=== PATIENT | female | born 2000 | race Caucasian/White ===

== ENCOUNTER 2021-06-10 12:57 | Inpatient (IN) ==
--- NOTE | 2021-06-10 13:23 | Emergency Department Note ---
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 Initially began this morning and woke her up from sleep and was more diffusely upper pain, and has quickly migrated to the right lower area. Accompanied by anorexia today. She tried taking Gas-X and Pepcid Complete without much relief in symptoms. Had a normal bowel movement today. Patient was diagnosed with mononucleosis 7 weeks ago at [facility]. She has had repeat blood work showing low platelets and was scheduled for repeat blood work this coming week. She has had persistent fatigue from mono and has been taking it easy, not exercising. Denies any recent trauma to the abdomen. No recent alcohol use. She denies any significant GI history, has never seen a beef splitter. Denies any history of abdominal or pelvic surgeries. Family history is positive for uterine and ovarian cysts. Her mother required hysterectomy secondary to multiple cysts. Patient has never been diagnosed with an ovarian cyst but she feels like she may have had them in the past, but the pain often improves. Last menstrual period was 2 weeks ago and was normal. She is sexually active, but uses condoms and takes control regularly. She denies any concern for sexually transmitted infection. Denies any abnormal vaginal bleeding or discharge recently. Does endorse that sex has been more painful over the past week. Denies any fevers, chills, chest pain, shortness of breath, cough, nausea or vomiting, blood in her stool, dark tarry stool, hematuria, dysuria, lightheadedness, weakness, skin rash. Home Medications Medication Instructions Recorded Confirmed Type drospirenone 3 mg-ethinyl 3 tab PO QAM 06/10/21 06/10/21 History estradiol 0.02 mg tablet (Vestura (28)) sertraline 25 mg tablet 25 mg PO QAM 06/10/21 06/10/21 History sertraline 50 mg tablet 50 mg PO QAM 06/10/21 06/10/21 History Allergies Allergy/AdvReac Type Severity Reaction Status Date / Time No Known Allergies Allergy Unverified 06/10/21 14:11 Past Med/Surg History Medical History Anxiety Mononucleosis Family History (Updated 06/10/21 @ 22:03 by PATRICIA Gillis) Other Ovarian cyst Polycystic kidney disease Social History Smoking Status: Never smoker Preferred Language: Yoruba Feels Safe at Home: Yes Review of Systems See HPI for pertinent positives & negatives. and A total of 10 systems reviewed and were otherwise negative Physical Exam Vital Signs Vital Signs - 24 hr 06/10/21 13:02 06/10/21 14:07 06/10/21 16:00 Temperature 99.0 F Temperature Source Temporal Artery Scan Pulse Rate 124 H Pulse Rate [Apical] Pulse Rate [Finger] 96 H 80 Pulse Rhythm [Apical] Respiratory Rate 20 18 16 Respiratory Effort / Characteristics Non-Labored Non-Labored Respiratory Depth Normal Respiratory Pattern Regular Blood Pressure 116/74 Blood Pressure [Right Arm] 127/72 119/68 Blood Pressure Mean 88 Blood Pressure Mean [Right Arm] 90 85 Blood Pressure Position [Right Arm] Pulse Oximetry 96 99 100 Oxygen Delivery Method Room Air Room Air Room Air Oxygen Flow Rate Sepsis Recent Fever Within 48 Hours No Sepsis New/Unexplained Change in Mental Status No Sepsis Action Taken by Nursing No Action Required 06/10/21 18:00 06/10/21 19:14 06/10/21 20:28 Temperature 97.7 F Temperature Source Temporal Artery Scan Pulse Rate 89 Pulse Rate [Apical] 105 H Pulse Rate [Finger] 84 Pulse Rhythm [Apical] Regular Respiratory Rate 16 16 16 Respiratory Effort / Characteristics Non-Labored Spontaneous Respiratory Depth Normal Respiratory Pattern Regular Blood Pressure 123/70 Blood Pressure [Right Arm] 123/82 123/79 Blood Pressure Mean Blood Pressure Mean [Right Arm] 95 93 Blood Pressure Position [Right Arm] Semi-fowlers Pulse Oximetry 99 99 98 Oxygen Delivery Method Room Air Room Air Nasal Cannula Oxygen Flow Rate 2 Sepsis Recent Fever Within 48 Hours Sepsis New/Unexplained Change in Mental Status Sepsis Action Taken by Nursing CONSTITUTIONAL: Well developed, well nourished, appears in mild discomfort secondary to abdominal pain. HEAD: Normocephalic, atraumatic. EYES: PERRL, conjunctivae normal, extraocular muscles intact. ENMT: External ears normal. Nose with normal external appearance, no congestion. Oral mucous membranes moist. Oropharynx normal. NECK: Full active range of motion. LYMPHATIC: No cervical adenopathy RESPIRATORY: Breathing unlabored and symmetric. Lungs clear to auscultation bilaterally. No wheeze, rales, or rhonchi. CARDIOVASCULAR: Tachycardic, regular rhythm. No murmurs, rubs, or gallops. ABDOMEN: Normal bowel sounds. Abdomen is soft. Tenderness in RLQ, positive straight leg raise, negative rovsing, negative psoas sign. Positive rebound sign. No masses. No CVA tenderness bilaterally. MUSCULOSKELETAL: Moves all extremities at all joints without pain or difficulty. No cyanosis or edema. Back with full range of motion. SKIN: [place], warm, dry. No jaundice. NEUROLOGIC: Alert and oriented x 3. No acute motor or sensory deficits. Cranial nerves grossly intact. PSYCHIATRIC: Slightly anxious, otherwise normal affect. Course Reevaluation(s) Reevaluation #1: Reevaluated patient at bedside after initial labs and ultrasound resulted. We discussed results. She states her white blood cell count was 3, 2 weeks ago, so this is now elevated at 11.65. Her pain remains unchanged. She remains tender in the right lower quadrant now with rebound tenderness. We discussed risks and benefits of CT imaging, and patient is agreeable with proceeding with CT scan Administered Medications Lactated Ringer's (Lr) 1,000 mls @ 100 mls/hr IV .Q10H ANJUM Stop: 07/10/21 21:16 Last Admin: 06/10/21 21:25 Dose: 100 mls/hr Documented by: [id number] Oxycodone/Acetaminophen (Oxycodone/Acetaminophen 5mg/325mg Tab) 2 tab PO Q4H PRN PRN Reason: SEVERE Pain (7,8,9,10) Stop: 06/24/21 21:16 Last Admin: 06/10/21 21:33 Dose: 2 tab Documented by: [id number] Discontinued Medications Bupivacaine HCl (Bupivacaine 0.5 % 5 Mg/1 Ml Mpf 30ml Vial) Confirm Administered Dose 30 ml .ROUTE .STK-MED ONE Stop: 06/10/21 18:36 Last Admin: 06/10/21 19:55 Dose: 30 ml Documented by: [id number] Sodium Chloride (Nss 1000ml) 1,000 mls @ 999 mls/hr IV .Q1H1M STA Stop: 06/10/21 14:43 Last Infusion: 06/10/21 15:07 Dose: 0 mls/hr Documented by: [id number] Admin: 06/10/21 14:06 Dose: 999 mls/hr Documented by: [id number] Cefazolin Sodium (Ancef 1000mg) 1,000 mg in 7.5 mls @ 2.5 mls/min IV PREOP ONE Stop: 06/10/21 19:58 Last Admin: 06/10/21 19:45 Dose: 2.5 mls/min Documented by: [id number] Ioversol (Optiray 320 100ml) 94 ml IV ONCE ONE Stop: 06/10/21 16:13 Last Admin: 06/10/21 16:12 Dose: 94 ml Documented by: [id number] Medical Decision Making Laboratory Data Result diagrams: 06/10/21 14:00 06/10/21 14:00 Lab Results 06/10/21 06/10/21 06/10/21 Range/Units 14:00 14:00 14:01 WBC 11.65 H (4.8-10.8) K/uL RBC 4.79 (4.2-5.4) M/uL Hgb 14.5 (12.0-16.0) g/dL Hct 41.3 (37-47) % MCV 86.2 (80-100) fL MCH 30.3 (25-34) pg MCHC 35.1 (32-36) g/dL RDW Std Deviation 38.7 (36.4-46.3) fL RDW Coeff of Josias 12.2 (11.5-14.5) % Plt Count 116 L (130-400) K/uL MPV 11.3 H (7.4-10.4) fL Immature Gran % (Auto) 0.2 % Neut % (Auto) 88.6 % Lymph % (Auto) 4.7 % [place] % (Auto) 6.3 % Eos % (Auto) 0.0 % Baso % (Auto) 0.2 % Neut # (Auto) 10.33 H (1.4-6.5) K/uL Lymph # (Auto) 0.55 L (1.2-3.4) K/uL [place] # (Auto) 0.73 H (0.11-0.59) K/uL Eos # (Auto) 0.00 (0-0.5) K/uL Baso # (Auto) 0.02 (0-0.2) K/uL Immature Gran # (Auto) 0.02 (0.00-0.02) K/uL Sodium 139 (136-145) mmol/L Potassium 3.7 (3.5-5.1) mmol/L Chloride 106 (98-107) mmol/L Carbon Dioxide 26 (21-32) mmol/L Anion Gap 7 (3-11) BUN 7 (6-23) mg/dl Creatinine 0.63 (0.6-1.2) mg/dl Est Cr Clr Drug Dosing 134.5 ml/min Est GFR ( Amer) > 150.0 ml/min Est GFR (Non-Af Amer) 130.0 ml/min BUN/Creatinine Ratio 11.1 (10-20) Glucose 111 H (70-99(Fasting)) mg/dl Calcium 9.6 (8.5-10.1) mg/dl Total Bilirubin 0.5 (0.2-1.0) mg/dl AST 18 (13-39) U/L ALT 13 (7-52) U/L Alkaline Phosphatase 43 (34-104) U/L Total Protein 7.1 (6.0-8.3) gm/dl Albumin 4.5 (3.4-5.0) gm/dl Globulin 2.6 (2.5-4.0) gm/dl Albumin/Globulin Ratio 1.7 (0.9-2) Lipase 23 (11-82) U/L Urine Color Yellow Urine Appearance Clear (Clear) Urine pH 8.0 H (4.5-7.5) Ur Specific [place] 1.005 (1.000-1.030) Urine Protein Negative (Negative) Urine Glucose (UA) Negative (Negative) Urine Ketones Negative (Negative) Urine Blood Negative (Negative) Urine Nitrite Negative (Negative) Urine Bilirubin Negative (Negative) Urine Urobilinogen Negative (Negative) Ur Leukocyte Esterase Negative (Negative) POC Ur Test (NEG) SARS-CoV-2, RNA, NAAT (NEGATIVE) 06/10/21 06/10/21 Range/Units 14:01 17:10 WBC (4.8-10.8) K/uL RBC (4.2-5.4) M/uL Hgb (12.0-16.0) g/dL Hct (37-47) % MCV (80-100) fL MCH (25-34) pg MCHC (32-36) g/dL RDW Std Deviation (36.4-46.3) fL RDW Coeff of Josias (11.5-14.5) % Plt Count (130-400) K/uL MPV (7.4-10.4) fL Immature Gran % (Auto) % Neut % (Auto) % Lymph % (Auto) % [place] % (Auto) % Eos % (Auto) % Baso % (Auto) % Neut # (Auto) (1.4-6.5) K/uL Lymph # (Auto) (1.2-3.4) K/uL [place] # (Auto) (0.11-0.59) K/uL Eos # (Auto) (0-0.5) K/uL Baso # (Auto) (0-0.2) K/uL Immature Gran # (Auto) (0.00-0.02) K/uL Sodium (136-145) mmol/L Potassium (3.5-5.1) mmol/L Chloride (98-107) mmol/L Carbon Dioxide (21-32) mmol/L Anion Gap (3-11) BUN (6-23) mg/dl Creatinine (0.6-1.2) mg/dl Est Cr Clr Drug Dosing ml/min Est GFR ( Amer) ml/min Est GFR (Non-Af Amer) ml/min BUN/Creatinine Ratio (10-20) Glucose (70-99(Fasting)) mg/dl Calcium (8.5-10.1) mg/dl Total Bilirubin (0.2-1.0) mg/dl AST (13-39) U/L ALT (7-52) U/L Alkaline Phosphatase (34-104) U/L Total Protein (6.0-8.3) gm/dl Albumin (3.4-5.0) gm/dl Globulin (2.5-4.0) gm/dl Albumin/Globulin Ratio (0.9-2) Lipase (11-82) U/L Urine Color Urine Appearance (Clear) Urine pH (4.5-7.5) Ur Specific [place] (1.000-1.030) Urine Protein (Negative) Urine Glucose (UA) (Negative) Urine Ketones (Negative) Urine Blood (Negative) Urine Nitrite (Negative) Urine Bilirubin (Negative) Urine Urobilinogen (Negative) Ur Leukocyte Esterase (Negative) POC Ur Test NEG (NEG) SARS-CoV-2, RNA, NAAT NEGATIVE (NEGATIVE) Imaging Data Radiologist's Impression: Pelvis Ultrasound 06/10/21 13:43 PELVIC ULTRASOUND CLINICAL HISTORY: RL abdominal pain and tenderness. FHX ovarian cyst COMPARISON STUDY: None. TECHNIQUE: Transabdominal and transvaginal sonography of the pelvis was performed. FINDINGS: Uterus measures 6.9 x 2.3 x 3.8 cm. Endometrium measures 2 mm in thickness. There is a 6 mm echogenic focus within the cervix. This is indeterminate. Small amount of fluid within the pelvis is present. There is color flow within each ovary. The right ovary measures 4.8 x 2.3 x 2.1 cm and the left ovary measures 3.9 x 2 x 1.9 cm. No adnexal masses are present IMPRESSION: 1. Unremarkable sonographic appearance of the uterus and ovaries. 2. Small amount of fluid within pelvis which is likely physiologic. 3. 6 mm echogenic focus within the cervix. This is indeterminate but of questionable significance. A follow-up ultrasound in 6 months to ensure stability is recommended. ACT 112: Negative or not required by law. Electronically signed by: Kenneth Aguayo M.D. 06/10/2021 3:10 PM Appendix Ultrasound 06/10/21 13:57 APPENDIX ULTRASOUND HISTORY: RLQ abdominal pain and tenderness COMPARISON: None. FINDINGS: Transabdominal scanning of the right lower quadrant was performed. The appendix was not identified. There are no fluid collections or masses within the right lower quadrant. Multiple benign-appearing ileocolic lymph nodes are incidentally noted. IMPRESSION: Nonvisualization of the appendix. This study is nondiagnostic in regards to evaluation for acute appendicitis. ACT 112: Negative or not required by law. Electronically signed by: Kenneth Aguayo M.D. 06/10/2021 3:03 PM Abdomen/Pelvis CT 06/10/21 13:59 CT OF THE ABDOMEN AND PELVIS WITH CONTRAST CLINICAL HISTORY: RLQ abd pain and tenderness started epigastric COMPARISON STUDY: Appendix and pelvic ultrasounds performed earlier today. TECHNIQUE: Following IV administration of 94 mL of Optiray, axial images of the abdomen and pelvis were obtained from the lung bases to the proximal femurs. Images were reviewed in the axial, sagittal, and coronal planes. IV contrast was administered without complication. Automated exposure control was utilized for the study. A dose lowering technique was utilized adhering to the principles of ALARA. Oral contrast was administered. CT DOSE: 298.75 mGy.cm FINDINGS: Lung bases are unremarkable. No pneumatosis, free air or portal venous gas is present. Innumerable small hypodense hepatic lesions are present. These likely reflect cysts. There are numerous hypodense bilateral renal lesions. The larger lesions reflect cysts. Multiple subcentimeter renal lesions are too small to characterize. An 8 mm hypodense lesion within the midpole of the left kidney is indeterminate but statistically reflects a hyperdense cyst. There are proximally 20 cysts within each kidney. No hydronephrosis. There is no evidence for a bowel obstruction. The appendix is dilated, measuring 1 cm caliber. The wall thickening. There is moderate. Appendiceal stranding. No free air or abscess is present. A small amount of fluid within the pelvis is noted. There is no pelvic abscess. Ovaries are not enlarged. Major vasculature is patent. No lymphadenopathy is present. No acute fracture or suspicious lesion within visualized skeletal structures. IMPRESSION: 1. Findings consistent with acute appendicitis. No free air or abscess. 2. Numerous (approximately 20) cysts within each kidney and innumerable suspected hepatic cysts. These findings raise the possibility of polycystic kidney disease and could be correlated with family history. 8 mm hypodense left renal lesion is indeterminate but statistically reflects a proteinaceous cyst. 3. Small amount of fluid within the pelvis. ACT 112: Negative or not required by law. Electronically signed by: Kenneth Aguayo M.D. 06/10/2021 4:22 PM MDM Narrative 20-year-old female presents to the emergency department with right lower abdominal pain that initially began as upper abdominal pain this morning. On initial exam, she appears in moderate discomfort and is reproducibly tender in the right lower quadrant. Tachycardic at triage that quickly normalized, normotensive. She has been dealing with ongoing issues related to mononucleosis being diagnosed 7 weeks ago, see above for further details. Declining anything for pain at this time Labs, IV fluids, and pelvic and appendix ultrasound was initially obtained to evaluate for possible pelvic/ovarian pathology, and attempt to visualize the ap pendix. White blood cell count 11.65 which may be notable as her white blood cell count was 3 several weeks ago. Platelets 116 which are improved from 2 weeks ago, patient states they were 110 likely secondary to mononucleosis. Ultrasound is largely negative for acute process aside from the cervical lesion that will require follow-up, and patient continued to be reproducibly tender in the right lower quadrant, so a CT abdomen pelvis with IV and oral contrast was obtained demonstrating acute appendicitis. General surgery was consulted, and I discussed the case as well as additional lab and imaging findings who agreed to see the patient at bedside. Additional findings on CT notable for numerous cystic and hepatic cysts. I discussed this with the patient, and she confirmed that her mother has polycystic kidney disease so this is likely the diagnosis. Patient has never been evaluated or screened for this in the past. The patient asked me to speak with her mother on the phone who is traveling from home to be with the patient. We discussed all of these findings, and mother also understands that appropriate outpatient follow-up is warranted. Patient remained hemodynamically stable and did not require pain medication. Impression & Plan Acute appendicitis, Cervical lesion, Multiple renal cysts, Hepatic cyst, Thrombocytopenia OR for appendectomy Follow-up with nephrology outpatient. Follow-up with [facility] for thrombocytopenia. Discharge Plan Visit Data Chief Complaint: GI Assessment Stated Complaint: HAS MONO, INTENSE STOMACH PAIN ED Provider: Gilmer Boss ED Midlevel Provider: Manuel Steel Discharge Problem: Acute appendicitis, Cervical lesion, Multiple renal cysts, Hepatic cyst, Thrombocytopenia Patient Disposition: Still a Patient Discharge Instructions Interventions: ED Discharge Assessment Last Done: 06/10/21 19:14 Discharge Problem: Acute appendicitis Qualifiers: Acute appendicitis type: with localized peritonitis Appendicitis gangrene presence: without gangrene Appendicitis perforation presence: without pe rforation Appendicitis abscess presence: without abscess Qualified Code(s): K35.30 - Acute appendicitis with localized peritonitis, without perforation or gangrene
[2021-06-10] MEDS ORDERED: SODIUM CHLORIDE 0.9% 1000ML 1,000 ML IV STA (13:43)
[2021-06-10 14:09] LABS: Basophils # (auto) 0.02 K/uL (0-0.2); Basophils % (auto) 0.2 %; Hematocrit (blood only) 41.3 % (37-47); Hemoglobin 14.5 g/dL (12.0-16.0); Immature Granulocytes # (auto) 0.02 K/uL (0.00-0.02); Immature Granulocytes % (auto) 0.2 %; Lymphocytes # (auto) 0.55 K/uL (1.2-3.4); Lymphocytes % (auto) 4.7 %; Mean Corpuscular Hemoglobin 30.3 pg (25-34); Mean Corpuscular Hgb Conc 35.1 g/dL (32-36); Mean Corpuscular Volume 86.2 fL (80-100); Mean Platelet Volume 11.3 fL (7.4-10.4); Monocytes # (auto) 0.73 K/uL (0.11-0.59); Monocytes % (auto) 6.3 %; Neutrophils # (auto) 10.33 K/uL (1.4-6.5); Neutrophils % (auto) 88.6 %; Platelet Count 116 K/uL (130-400); RDW Coefficient of Variation 12.2 % (11.5-14.5); RDW Standard Deviation 38.7 fL (36.4-46.3); Red Blood Count 4.79 M/uL (4.2-5.4); White Blood Count 11.65 K/uL (4.8-10.8)
[2021-06-10 14:26] LABS: Appearance Urine Clear (Clear); Bilirubin Urine Negative (Negative); Blood Urine Negative (Negative); Color Urine Yellow; Glucose Urine UA Negative (Negative); Ketones Urine Negative (Negative); Leukocyte Esterase Urine Negative (Negative); Nitrite Urine Negative (Negative); Protein Urine Negative (Negative); Specific Gravity Urine 1.005 (1.000-1.030); Urobilinogen Urine Negative (Negative)
[2021-06-10 14:27] LABS: Alanine Aminotransferase 13 U/L (7-52); Albumin Globulin Ratio 1.7 (0.9-2); Albumin Level 4.5 gm/dl (3.4-5.0); Alkaline Phosphatase 43 U/L (34-104); Anion Gap 7 (3-11); Aspartate Aminotransferase 18 U/L (13-39); BUN Creatinine Ratio 11.1 (10-20); Bilirubin,Total 0.5 mg/dl (0.2-1.0); Blood Urea Nitrogen 7 mg/dl (6-23); Calcium 9.6 mg/dl (8.5-10.1); Carbon Dioxide 26 mmol/L (21-32); Chloride 106 mmol/L (98-107); Creatinine Clr Calc Pharmacy 134.5 ml/min; Est GFR (African American) > 150.0 ml/min; Globulin 2.6 gm/dl (2.5-4.0); Glucose 111 mg/dl (70-99(Fasting)); Lipase 23 U/L (11-82); Potassium 3.7 mmol/L (3.5-5.1); Sodium 139 mmol/L (136-145); Total Protein 7.1 gm/dl (6.0-8.3)
--- NOTE | 2021-06-10 15:05 | Ultrasound Report ---
APPENDIX ULTRASOUND HISTORY: RLQ abdominal pain and tenderness COMPARISON: None. FINDINGS: Transabdominal scanning of the right lower quadrant was performed. The appendix was not identified. T here are no fluid collections or masses within the right lower quadrant. Multiple benign-appearing il eocolic lymph nodes are incidentally noted. IMPRESSION: Nonvisualization of the appendix. This study is nondiagnostic in regards to evaluation for acute appe ndicitis. ACT 112: Negative or not required by law. Electronically signed by: Kenneth Aguayo M.D. 06/10/2021 3:03 PM
--- NOTE | 2021-06-10 15:11 | Ultrasound Report ---
PELVIC ULTRASOUND CLINICAL HISTORY: RL abdominal pain and tenderness. FHX ovarian cyst COMPARISON STUDY: None. TECHNIQUE: Transabdominal and transvaginal sonography of the pelvis was performed. FINDINGS: Uterus measures 6.9 x 2.3 x 3.8 cm. Endometrium measures 2 mm in thickness. There is a 6 mm echogenic focus within the cervix. This is indeterminate. Small amount of fluid within the pelvis is present. There is color flow within each ovary. The right ovary measures 4.8 x 2.3 x 2.1 cm and the left ovary measures 3.9 x 2 x 1.9 cm. No adnexal masses are present IMPRESSION: 1. Unremarkable sonographic appearance of the uterus and ovaries. 2. Small amount of fluid within pelvis which is likely physiologic. 3. 6 mm echogenic focus within the cervix. This is indeterminate but of questionable significance. A follow-up ultrasound in 6 months to ensure stability is recommended. ACT 112: Negative or not required by law. Electronically signed by: Kenneth Aguayo M.D. 06/10/2021 3:10 PM
[2021-06-10] MEDS ORDERED: OPTIRAY 320 100ml IV ONE (16:12)
--- NOTE | 2021-06-10 16:25 | CT Scan Report ---
CT OF THE ABDOMEN AND PELVIS WITH CONTRAST CLINICAL HISTORY: RLQ abd pain and tenderness started epigastric COMPARISON STUDY: Appendix and pelvic ultrasounds performed earlier today. TECHNIQUE: Following IV administration of 94 mL of Optiray, axial images of the abdomen and pelvis we re obtained from the lung bases to the proximal femurs. Images were reviewed in the axial, sagittal, and coronal planes. IV contrast was administered without complication. Automated exposure control wa s utilized for the study. A dose lowering technique was utilized adhering to the principles of ALARA . Oral contrast was administered. CT DOSE: 298.75 mGy.cm FINDINGS: Lung bases are unremarkable. No pneumatosis, free air or portal venous gas is present. Innu merable small hypodense hepatic lesions are present. These likely reflect cysts. There are numerous h ypodense bilateral renal lesions. The larger lesions reflect cysts. Multiple subcentimeter renal lesi ons are too small to characterize. An 8 mm hypodense lesion within the midpole of the left kidney is indeterminate but statistically reflects a hyperdense cyst. There are proximally 20 cysts within each kidney. No hydronephrosis. There is no evidence for a bowel obstruction. The appendix is dilated, me asuring 1 cm caliber. The wall thickening. There is moderate. Appendiceal stranding. No free air or a bscess is present. A small amount of fluid within the pelvis is noted. There is no pelvic abscess. Ov cristin are not enlarged. Major vasculature is patent. No lymphadenopathy is present. No acute fracture or suspicious lesion within visualized skeletal structures. IMPRESSION: 1. Findings consistent with acute appendicitis. No free air or abscess. 2. Numerous (approximately 20) cysts within each kidney and innumerable suspected hepatic cysts. Thes e findings raise the possibility of polycystic kidney disease and could be correlated with family his tory. 8 mm hypodense left renal lesion is indeterminate but statistically reflects a proteinaceous cy st. 3. Small amount of fluid within the pelvis. ACT 112: Negative or not required by law. Electronically signed by: Kenneth Aguayo M.D. 06/10/2021 4:22 PM
--- NOTE | 2021-06-10 18:00 | History & Physical Report ---
Date of Service June 10, 2021 Assessment & Plan (1) Acute appendicitis: Plan: 20-year-old with acute appendicitis. We discussed laparoscopic appendectomy with risks of bleeding infection conversion to open postoperative ileus and postoperative abscess. Consent was signed. She will be taken to the OR tonight. Expected overnight hospital stay and recovery of 1 to 2 weeks reviewed. In addition, we discussed that her CT scan is suggestive of polycystic kidney disease. She was instructed to follow-up with her outpatient provider. History of Present Illness Chief Complaint: abdominal pain Primary Care Provider: Rolando Jang MD 20-year-old who presents to the emergency room complaining of abdominal pain. She developed mononucleosis about 7 weeks ago and has been followed by [facility] for neutropenia and thrombocytopenia. She developed more acute abdominal pain over the course of the last day. This started in the upper abdomen and then localized in the right lower quadrant. It was worse with activity. Very intense/ severe. No radiation. No fevers. There was no nausea or vomiting. She has never had any similar episodes. Allergies Allergy/AdvReac Type Severity Reaction Status Date / Time No Known Allergies Allergy Unverified 06/10/21 14:11 Home Medications Medication Instructions Recorded Confirmed Type drospirenone 3 mg-ethinyl 3 tab PO QAM 06/10/21 06/10/21 History estradiol 0.02 mg tablet (Vestura (28)) sertraline 25 mg tablet 25 mg PO QAM 06/10/21 06/10/21 History sertraline 50 mg tablet 50 mg PO QAM 06/10/21 06/10/21 History Past Med/Surg History Medical History Anxiety Mononucleosis Family History Other Ovarian cyst Social History Smoking Status: Never smoker Preferred Language: Syriac Feels Safe at Home: Yes Review of Systems Review of Systems: All systems reviewed & are unremarkable except as noted in HPI & below Physical Exam Constitutional: WD/WN, vitals as above Eyes: PERRL, conjunctivae normal, anicteric sclerae ENMT: external ear and nose normal, oropharynx normal Neck: normal visual inspection and trachea midline Respiratory: normal respiratory effort, lungs clear to auscultation Gastrointestinal (Abdomen): Inspection/Auscultation: abdomen normal to inspection and normal bowel sounds; abdomen not distended Percussion/Palpation: + abdomen tender (RLQ) and abdomen soft Musculoskeletal: Extremities: extremities normal to inspection Neurologic: awake; no focal motor deficits Psychiatric: A+Ox3, euthymic affect Results & Data Results & Data ([facility]) Vital Signs (Past 12 Hours) Vital Signs Temp Pulse Pulse Resp BP BP Pulse Ox 06/10/21 16:00 80 16 119/68 100 06/10/21 14:07 96 H 18 127/72 99 06/10/21 13:02 37.2 C 124 H 20 116/74 96 Laboratory Results Abnormal lab results 06/10/21 06/10/21 06/10/21 Range/Units 14:00 14:00 14:01 WBC 11.65 H (4.8-10.8) K/uL Plt Count 116 L (130-400) K/uL MPV 11.3 H (7.4-10.4) fL Neut # (Auto) 10.33 H (1.4-6.5) K/uL Lymph # (Auto) 0.55 L (1.2-3.4) K/uL [place] # (Auto) 0.73 H (0.11-0.59) K/uL Glucose 111 H (70-99(Fasting)) mg/dl Urine pH 8.0 H (4.5-7.5) Diagnostic Findings CT OF THE ABDOMEN AND PELVIS WITH CONTRAST CLINICAL HISTORY: RLQ abd pain and tenderness started epigastric COMPARISON STUDY: Appendix and pelvic ultrasounds performed earlier today. TECHNIQUE: Following IV administration of 94 mL of Optiray, axial images of the abdomen and pelvis were obtained from the lung bases to the proximal femurs. Images were reviewed in the axial, sagittal, and coronal planes. IV contrast was administered without complication. Automated exposure control was utilized for the study. A dose lowering technique was utilized adhering to the principles of ALARA. Oral contrast was administered. CT DOSE: 298.75 mGy.cm FINDINGS: Lung bases are unremarkable. No pneumatosis, free air or portal venous gas is present. Innumerable small hypodense hepatic lesions are present. These likely reflect cysts. There are numerous hypodense bilateral renal lesions. The larger lesions reflect cysts. Multiple subcentimeter renal lesions are too small to characterize. An 8 mm hypodense lesion within the midpole of the left kidney is indeterminate but statistically reflects a hyperdense cyst. There are proximally 20 cysts within each kidney. No hydronephrosis. There is no evidence for a bowel obstruction. The appendix is dilated, measuring 1 cm caliber. The wall thickening. There is moderate. Appendiceal stranding. No free air or abscess is present. A small amount of fluid within the pelvis is noted. There is no pelvic abscess. Ovaries are not enlarged. Major vasculature is patent. No lymphadenopathy is present. No acute fracture or suspicious lesion within visualized skeletal structures. IMPRESSION: 1. Findings consistent with acute appendicitis. No free air or abscess. 2. Numerous (approximately 20) cysts within each kidney and innumerable suspected hepatic cysts. These findings raise the possibility of polycystic kidney disease and could be correlated with family history. 8 mm hypodense left renal lesion is indeterminate but statistically reflects a proteinaceous cyst. 3. Small amount of fluid within the pelvis. (1) Acute appendicitis Acute appendicitis type: with localized peritonitis Appendicitis abscess presence: without abscess Appendicitis gangrene presence: without gangrene Appendicitis perforation presence: without perforation Qualified Code(s): K35.30 - Acute appendicitis with localized peritonitis, without perforation or gangrene
[2021-06-10] MEDS ORDERED: BUPIVACAINE 0.5 % 5 MG/1 ML MPF 30ML VIAL ONE (18:35)
[2021-06-10] MEDS ORDERED: ePHEDrine sulfate 50 MG/ML AMP IV PRN (19:18)
[2021-06-10] MEDS ORDERED: ATROPINE SULFATE 0.1 MG/ML 10ML SYR IV PRN (19:18)
[2021-06-10] MEDS ORDERED: ONDANSETRON INJ 2 MG/ML 2 ML VIAL IV PRN ×2 (19:18→21:17)
[2021-06-10] MEDS ORDERED: fentaNYL citrate 100 MCG/2 ML VIAL IV PRN (19:18)
[2021-06-10] MEDS ORDERED: PROMETHAZINE HCL 6.25 MG in SODIUM CHLORIDE 0.9% 50 ML IV PRN (19:18)
--- NOTE | 2021-06-10 19:18 | Anesthesiology Consultation ---
Date of Service June 10, 2021 Assessment & Plan Chart Review Chart Review: Acceptable Risk for Surgery and Patient NOT seen in Pre Admission Testing Consults Requested none ASA [id number] Proposed Anesthesia Anesthesia Type: General Risk / Benefits Reviewed With: PT / POA / Parent / Guardian, Accepts Plan and Informed Consent Obtained History Surgery Operation Date: 06/10/21 19:00 Proposed Procedures p Laparoscopic Appendectomy - Fatimah Nava MD Height/Weight Height: 5 ft 6 in Weight: 63.4 kg Allergies Allergy/AdvReac Type Severity Reaction Status Date / Time No Known Allergies Allergy Unverified 06/10/21 14:11 Medications Home Medications Medication Instructions Recorded Confirmed Last Taken drospirenone 3 mg-ethinyl 3 tab PO QAM 06/10/21 06/10/21 06/10/21 estradiol 0.02 mg tablet (Vestura (28)) sertraline 25 mg tablet 25 mg PO QAM 06/10/21 06/10/21 06/10/21 sertraline 50 mg tablet 50 mg PO QAM 06/10/21 06/10/21 06/10/21 NPO Date Last Intake of Fluids: 06/10/21 Time Last Intake of Fluids: 11:00 Last Intake of Fluids Comment: Contrast 1600 Date Last Intake of Solids: 06/10/21 Time Last Intake of Solids: 11:00 Past Medical History Medical History Anxiety Mononucleosis Exercise / Class Metabolic Activity II 4-5 Yardwork/Stairs/Walk up hill Past Family History Family History Other Ovarian cyst Past Anesthesia History No Hx of Anesthesia Complications and No Family Hx of Anesthesia Complications History of PONV No Hx of PONV and No Hx of Motion Sickness Social History Smoking Status: Never smoker Physical Exam Vital Signs Last Vital Signs Temp 37.2 C 06/10/21 13:02 Pulse 89 06/10/21 19:14 Resp 16 06/10/21 19:14 BP 123/70 06/10/21 19:14 Pulse Ox 99 06/10/21 19:14 ENMT Mouth: no dentition abnormality Thyromental Distance: > or= 3.5 Finger Breadths Mallampati Class: II Neck normal visual inspection Respiratory normal respiratory effort Auscultation: lungs clear to auscultation bilaterally Cardiovascular Rate/Rhythm: regular rate and regular rhythm Psychiatric Orientation: alert Testing Laboratory Results 06/10/21 14:00 06/10/21 14:00 Urine Color Yellow 06/10/21 14:01 Urine Appearance Clear (Clear) 06/10/21 14:01 Urine pH 8.0 (4.5-7.5) H 06/10/21 14:01 Ur Specific Roll 1.005 (1.000-1.030) 06/10/21 14:01 Urine Protein Negative (Negative) 06/10/21 14:01 Urine Glucose (UA) Negative (Negative) 06/10/21 14:01 Urine Ketones Negative (Negative) 06/10/21 14:01 Urine Nitrite Negative (Negative) 06/10/21 14:01 Ur Leukocyte Esterase Negative (Negative) 06/10/21 14:01 06/10/21 14:01 POC Ur Test NEG
[2021-06-10] MEDS ORDERED: fentaNYL citrate 100 MCG/2 ML VIAL ONE ×2 (19:23→19:33)
[2021-06-10] MEDS ORDERED: MoRPHine SULFATE PF 1 MG/ML 10 ML AMP/VIAL ONE (19:42)
[2021-06-10] MEDS ORDERED: ceFAZolin 1000MG 1,000 MG/7.5 ML SYR IV ONE (19:56)
[2021-06-10] MEDS ORDERED: DEXAMETHASONE SOD INJ 4 MG/ML VIAL ONE (19:59)
[2021-06-10] MEDS ORDERED: PROPOFOL IV EMULSION 10 MG/ML 20 ML VIAL IV ONE (19:59)
[2021-06-10] MEDS ORDERED: ROCURONIUM BROMIDE 10 MG/ML 5 ML VIAL IV ONE (19:59)
[2021-06-10] MEDS ORDERED: ONDANSETRON INJ 2 MG/ML 2 ML VIAL ONE (19:59)
[2021-06-10] MEDS ORDERED: LIDOCAINE 2% 2 ML VIAL/AMP(20MG/ML) INFIL ONE (19:59)
[2021-06-10] MEDS ORDERED: SUCCINYLCHOLINE CHLORIDE 20 MG/ML 10 ML VIAL IV ONE (19:59)
[2021-06-10] MEDS ORDERED: KETOROLAC 30 MG/ML VIAL ONE (19:59)
--- NOTE | 2021-06-10 20:32 | Operative Report ---
Post Operative Report Pre & Post Diagnosis Operation Date: 06/10/21 19:00 Pre-Op Diagnosis: Acute appendicitis Post-Op Diagnosis: Acute appendicitis I identified the patient and participated in the time-out.: Yes Procedure Operation Date: 06/10/21 19:00 Actual Procedures p Laparoscopic Appendectomy - Fatimah Nava MD Surgeon Fatimah Nava MD Contracts Law Professor none Estimated Blood Loss 5 Findings Consistent with Post-Op Diagnosis acute suppurative appendicitis Fluids 1000 cc Specimens appendix Drains none Anesthesia Type General Complications none Disposition Accompanied Patient To Recovery: No Indications 20-year-old woman who presented with acute appendicitis on imaging and clinical criteria. She was consented for laparoscopic appendectomy Description of Procedure The patient received Ancef preoperatively. She had placement of sequential compression devices. After the induction of general endotracheal anesthesia she was positioned with her left arm tucked and in Trendelenburg. Her abdomen was sterilely prepped and draped. The skin was grasped with towel clamps and retracted superiorly. A supraumbilical incision was made and a Veress needle placed into the peritoneal cavity. This was tested with a saline drop test. Initial pressure was 4 mm Hg. Pneumoperitoneum was established to 15 mmHg. A 12 mm trocar was placed with the camera through the trocar site. The abdomen was inspected and there was some air in the omentum over the transverse colon. This was inspected carefully and no injury was noted. Two additional trocars were placed under direct vision - a 5 mm in the midline pubic area and a 5 mm in the left lower abdomen. The appendix was visualized. This was quite long with inflammatory changes in its midportion and tip. A window was created at the base of the appendix on the cecum. The appendix was divided off the cecum with a firing of the YOVANA 45 purple load stapler. The appendiceal mesentery was taken with a second firing of the stapler. The appendix was placed in Endobag and removed through the umbilical incision. The abdomen was irrigated and noted to be hemostatic. The fascia of the epigastrium was closed with 0 Vicryl sutures. The skin of all 3 incisions closed with running subcuticular 4-0 Vicryl sutures. 30 cc of half percent Marcaine had been used for local anesthesia. Steri- Strips and sterile dressings were applied. She was awakened and taken to recovery in stable condition. I attest to the content of the Intraoperative Record and any orders documented therein. Any exceptions are noted below.
--- NOTE | 2021-06-10 20:39 | Anesthesiology Progress Note ---
Date of Service June 10, 2021 Anesthesia Post Procedure Vital Signs Vital Signs: Temp Pulse Pulse Resp BP BP Pulse Ox 06/10/21 19:14 89 16 123/70 99 06/10/21 18:00 84 16 123/82 99 06/10/21 16:00 80 16 119/68 100 06/10/21 14:07 96 H 18 127/72 99 06/10/21 13:02 37.2 C 124 H 20 116/74 96 Pain Intensity Right Lower Abdomen: Pain Intensity: 6 Transfer of Care Handoff Completed per policy Notes Mental Status: alert / awake / arousable Patient Amnestic to Procedure: Yes Nausea / Vomiting: adequately controlled Pain: adequately controlled Airway Patency, RR, SpO2: stable & adequate BP & HR: stable & adequate Hydration State: stable & adequate Anesthetic Complications: no major complications apparent
[2021-06-10] MEDS ORDERED: MoRPHine SULFATE 4 MG/ML 1 ML CARP\\VIAL IV PRN (21:17)
[2021-06-10] MEDS ORDERED: MoRPHine SULFATE 2 MG/ML CARP IV PRN (21:17)
[2021-06-10] MEDS ORDERED: oxyCODONE/ACETAMINOPHEN 5mg/325mg TAB PO PRN (21:17)
[2021-06-10] MEDS ORDERED: IBUPROFEN 200 MG TAB PO PRN (21:17)
[2021-06-10] MEDS: LACTATED RINGER'S 1,000 ML IV SCH (21:25)
[2021-06-10] MEDS: AMPICILLIN/SULBACTAM SOD 1,500 MG in 0.9 % SODIUM CHLORIDE 100 ML IV SCH (22:16)
[2021-06-11] MEDS: MELATONIN 3 MG TAB PO PRN ×3 (00:30→21:10)
[2021-06-11] MEDS: AMPICILLIN/SULBACTAM SOD 1,500 MG in 0.9 % SODIUM CHLORIDE 100 ML IV SCH ×4 (03:56→21:54)
[2021-06-11] MEDS: ACETAMINOPHEN 325 MG TAB PO PRN ×4 (04:01→21:10)
[2021-06-11] MEDS: LACTATED RINGER'S 1,000 ML IV SCH ×2 (07:45→18:43)
[2021-06-11] MEDS ORDERED: KETOROLAC TROMETHAMINE 15 MG/ML VIAL IV PRN (07:52)
[2021-06-11] MEDS: SERTRALINE HCL 50 MG TABLET PO SCH (08:58)
[2021-06-11] MEDS ORDERED: SERTRALINE HCL 50 MG TABLET PO SCH (09:00)
[2021-06-11 09:14] LABS: Basophils # (auto) 0.01 K/uL (0-0.2); Basophils % (auto) 0.2 %; Hematocrit (blood only) 24.5 % (37-47); Hemoglobin 8.5 g/dL (12.0-16.0); Lymphocytes # (auto) 0.65 K/uL (1.2-3.4); Lymphocytes % (auto) 9.8 %; Mean Corpuscular Hgb Conc 34.7 g/dL (32-36); Mean Corpuscular Volume 86.6 fL (80-100); Mean Platelet Volume 10.8 fL (7.4-10.4); Monocytes # (auto) 0.54 K/uL (0.11-0.59); Monocytes % (auto) 8.2 %; Neutrophils # (auto) 5.41 K/uL (1.4-6.5); Neutrophils % (auto) 81.8 %; Platelet Count 117 K/uL (130-400); RDW Coefficient of Variation 12.4 % (11.5-14.5); RDW Standard Deviation 39.5 fL (36.4-46.3); Red Blood Count 2.83 M/uL (4.2-5.4); White Blood Count 6.61 K/uL (4.8-10.8)
--- NOTE | 2021-06-11 09:37 | Surgery Progress Note ---
Date of Service June 11, 2021 Assessment & Plan (1) Acute appendicitis: Plan: s/p lap appy. Having significant neck pain/ bloating. Will try morphine to help with pain control. CBC rechecked due to known thrombocytopenia. WBC count is back to normal. H/H decreased - 8.5/24.5. Hemodynamically stable currently - no tachycardia or hypotension. May have had some intraperitoneal bleeding from surgery but no sign of active bleeding. May also be due on part to her pancytopenia from mono. Will monitor. No need for blood transfusion as she is stable. Will add colace at her request. Will try and ambulate once pain is under better control. Admission and Anticipated Discharge Date Admission Date: June 10, 2021 Subjective Complaining of neck pain and bloating. Very severe. Better if she lays on her left side. Unable to get up as she became diaphoretic and vasovagal. Passing gas and some liquid stool. No nausea. Has only had tylenol and advil since the surgery. BP was low after anesthesia but is better now. Was able to urinate. Physical Exam Constitutional: WD/WN, vitals as above Respiratory: normal respiratory effort, lungs clear to auscultation Cardiovascular: RRR, no murmur, no edema Gastrointestinal (Abdomen): soft, bloated, incisions clean, hyperactive bowel tones, non tender Neurologic: awake; no focal motor deficits Psychiatric: A+Ox3, euthymic affect Results & Data ([facility]) Vital Signs (Past 12 Hours) Vital Signs Temp Pulse Pulse Resp BP Pulse Ox 06/11/21 07:55 114/69 06/11/21 07:40 37.1 C 96 H 18 111/65 98 06/11/21 03:55 36.8 C 89 18 80/47 L 97 06/11/21 00:36 37 C 95 H 15 73/36 L 94 06/10/21 23:52 37 C 92 H 14 75/33 L 95 06/10/21 22:18 36.9 C 100 H 18 98/60 L 95 06/10/21 21:41 37.1 C 90 18 105/69 100 Laboratory Results Abnormal lab results 06/10/21 06/10/21 06/10/21 Range/Units 14:00 14:00 14:01 WBC 11.65 H (4.8-10.8) K/uL RBC (4.2-5.4) M/uL Hgb (12.0-16.0) g/dL Hct (37-47) % Plt Count 116 L (130-400) K/uL MPV 11.3 H (7.4-10.4) fL Neut # (Auto) 10.33 H (1.4-6.5) K/uL Lymph # (Auto) 0.55 L (1.2-3.4) K/uL [place] # (Auto) 0.73 H (0.11-0.59) K/uL Glucose 111 H (70-99(Fasting)) mg/dl Urine pH 8.0 H (4.5-7.5) 06/11/21 Range/Units 08:09 WBC (4.8-10.8) K/uL RBC 2.83 L (4.2-5.4) M/uL Hgb 8.5 L D (12.0-16.0) g/dL Hct 24.5 L (37-47) % Plt Count 117 L (130-400) K/uL MPV 10.8 H (7.4-10.4) fL Neut # (Auto) (1.4-6.5) K/uL Lymph # (Auto) 0.65 L (1.2-3.4) K/uL [place] # (Auto) (0.11-0.59) K/uL Glucose (70-99(Fasting)) mg/dl Urine pH (4.5-7.5) (1) Acute appendicitis Acute appendicitis type: with localized peritonitis Appendicitis abscess presence: without abscess Appendicitis gangrene presence: without gangrene Appendicitis perforation presence: without perforation Qualified Code(s): K35.30 - Acute appendicitis with localized peritonitis, without perforation or gangrene
[2021-06-11] MEDS: DOCUSATE SODIUM 100 MG CAP PO SCH ×2 (10:12→21:11)
[2021-06-11] MEDS ORDERED: HYDROmorphone INJ 0.5 MG/0.5 ML SYR IV PRN (10:35)
[2021-06-11] MEDS ORDERED: HYDROmorphone INJ 1 MG/ML SYRINGE IV PRN (10:35)
[2021-06-11] MEDS: bisacodyL 10 MG SUPP PR STA ×2 (11:07→14:00)
[2021-06-11] MEDS: SIMETHICONE 80 MG CHEW PO PRN (16:44)
[2021-06-11] MEDS ORDERED: LACTATED RINGER'S 500 ML IV ONE (23:25)
[2021-06-12] MEDS: AMPICILLIN/SULBACTAM SOD 1,500 MG in 0.9 % SODIUM CHLORIDE 100 ML IV SCH ×4 (03:46→21:40)
[2021-06-12] MEDS: LACTATED RINGER'S 1,000 ML IV SCH ×2 (04:54→22:16)
[2021-06-12 07:36] LABS: Hematocrit (blood only) 20.1 % (37-47); Mean Corpuscular Hemoglobin 30.7 pg (25-34); Mean Corpuscular Hgb Conc 34.8 g/dL (32-36); Mean Corpuscular Volume 88.2 fL (80-100); Mean Platelet Volume 10.7 fL (7.4-10.4); Platelet Count 100 K/uL (130-400); RDW Standard Deviation 41.8 fL (36.4-46.3); Red Blood Count 2.28 M/uL (4.2-5.4); White Blood Count 4.35 K/uL (4.8-10.8)
[2021-06-12 07:51] LABS: Basophils # (auto) 0.01 K/uL (0-0.2); Basophils % (auto) 0.2 %; Eosinophils # (auto) 0.01 K/uL (0-0.5); Eosinophils % (auto) 0.2 %; Immature Granulocytes # (auto) 0.01 K/uL (0.00-0.02); Immature Granulocytes % (auto) 0.2 %; Lymphocytes # (auto) 1.29 K/uL (1.2-3.4); Lymphocytes % (auto) 29.7 %; Monocytes # (auto) 0.31 K/uL (0.11-0.59); Monocytes % (auto) 7.1 %; Neutrophils # (auto) 2.72 K/uL (1.4-6.5); Neutrophils % (auto) 62.6 %; RBC Morphology Unremarkable
[2021-06-12] MEDS ORDERED: SODIUM CHLORIDE 0.9% 250 ML IV PRN ×2 (08:26→09:01)
[2021-06-12] MEDS: DOCUSATE SODIUM 100 MG CAP PO SCH (08:46)
[2021-06-12] MEDS: SERTRALINE HCL 50 MG TABLET PO SCH (08:46)
[2021-06-12] MEDS ORDERED: OPTIRAY 320 100ml IV ONE (09:14)
--- NOTE | 2021-06-12 09:50 | CT Scan Report ---
ABDOMEN AND PELVIS CT WITH IV CONTRAST CT DOSE: 353.52 mGy.cm HISTORY: Generalized abdominal pain. r/o bleed abdomen s/p lap appy TECHNIQUE: Multiaxial CT images of the abdomen and pelvis were performed following the use of intrave nous contrast. A dose lowering technique was utilized adhering to the principles of ALARA. COMPARISON STUDY: Abdomen and pelvis CT 06/10/2021. FINDINGS: There are trace bilateral pleural effusions. Trace pneumoperitoneum. This is likely due to the patient's postoperative state. No fractures within the visualized osseous structures. Multiple sm all hepatic and renal cysts again noted. Stable 8 mm hypodense lesion within the interpolar region of the left kidney on image 172. This is incompletely characterized but may represent a hyperdense cyst . No hydronephrosis. The adrenal glands and pancreas unremarkable. Abdominal aorta is normal in calib er. The main portal vein is patent. Normal gallbladder. Periumbilical subcutaneous edema/hemorrhage w ith a small focus of gas. This likely represents expected postoperative changes status post laparosco pic appendectomy. There is also mild edema within the left lower quadrant abdominal musculature. The bladder is unremarkable. The uterus is within normal limits. There is a moderate amount of hemoperito neum most pronounced within the right lower quadrant at the appendectomy site. There appears to be se ntinel clot at this location best seen on image 255 which measures 7 cm. Hemoperitoneum seen within t he deep pelvis as well as the perisplenic locations. No definite active arterial extravasation identi fied at this time. No bowel wall thickening or obstruction. There is mass effect the sigmoid colon fr om the hemoperitoneum. Small cleft along the inferior aspect of the spleen best seen on image 151. Th is is likely present on the prior study. A small splenic laceration is considered less likely. IMPRESSION: 1. Moderate amount of hemoperitoneum with a 7 cm sentinel clot located within the right lower quadran t near the appendectomy site. Therefore, this favors the origin of bleeding. No active arterial extra vasation identified this time. 2. A small cleft within the inferior aspect of the spleen which was likely present on the prior study . There is a small amount of hemoperitoneum surrounding the spleen. A splenic laceration is considere d less likely but not entirely excluded. 3. Trace bilateral pleural effusions. 4. Additional findings as described above. ACT 112: Negative or not required by law. Electronically signed by: Jesus Villalobos M.D. 06/12/2021 9:49 AM
[2021-06-12 10:16] LABS: Reticulocyte % 1.7 % (0.5-2.0); Reticulocytes # 0.04 10^6/uL (0.02-0.10)
[2021-06-12] MEDS ORDERED: diphenhydrAMINE 50 MG/ML VIAL IV STA (10:35)
--- NOTE | 2021-06-12 10:55 | Surgery Progress Note ---
Date of Service June 12, 2021 Assessment & Plan (1) Acute blood loss anemia: Plan: Postoperative bleed, potentially related to thrombocytopenia. No sign of active extravasation on CT scan. Will transfuse 2 units PRBCs - consent obtained. (2) Acute appendicitis: Plan: Will have prolonged recovery second to postop bleed. Continue diet, simethicone. (3) Thrombocytopenia: Plan: Hematology consult - I discussed with Dr. Flor. Believed to be secondary to mono Admission and Anticipated Discharge Date Admission Date: June 10, 2021 Subjective Neck pain better but now with more pain at umbilicus and RLQ with walking. Tired. Still bloated. Had a liquid stool yesterday. No fevers. No nausea. Tolerating diet. Noted to be tachycardic last night - got fluid bolus. Physical Exam Constitutional: WD/WN, vitals as above tachycardia persists Gastrointestinal (Abdomen): soft, pos bowel tones, bruising at umbilicus, incisions clean, mod distention, no guarding Results & Data ([facility]) Vital Signs (Past 12 Hours) Vital Signs Temp Pulse Pulse Resp BP Pulse Ox 06/12/21 07:40 37.3 C 110 H 15 105/61 97 06/12/21 01:08 112 H 99/55 L 06/11/21 23:18 116 H 95/53 L Laboratory Results 06/12/21 06/12/21 06/12/21 Range/Units 09:58 09:58 09:25 WBC (4.8-10.8) K/uL RBC (4.2-5.4) M/uL Hgb (12.0-16.0) g/dL Hct (37-47) % MCV (80-100) fL MCH (25-34) pg MCHC (32-36) g/dL RDW Std Deviation (36.4-46.3) fL RDW Coeff of Josias (11.5-14.5) % Plt Count (130-400) K/uL MPV (7.4-10.4) fL Immature Gran % (Auto) % Neut % (Auto) % Lymph % (Auto) % [place] % (Auto) % Eos % (Auto) % Baso % (Auto) % Reticulocyte % (Auto) 1.7 (0.5-2.0) % Neut # (Auto) (1.4-6.5) K/uL Lymph # (Auto) (1.2-3.4) K/uL [place] # (Auto) (0.11-0.59) K/uL Eos # (Auto) (0-0.5) K/uL Baso # (Auto) (0-0.2) K/uL Reticulocyte # 0.04 (0.02-0.10) 10^6/uL Immature Gran # (Auto) (0.00-0.02) K/uL RBC Morphology Lactate Dehydrogenase 96 (86-244) U/L Blood Type Pending Blood Type Recheck Antibody Screen Pending Crossmatch See Detail 06/12/21 06/11/21 Range/Units 06:57 08:09 WBC 4.35 L (4.8-10.8) K/uL RBC 2.28 L (4.2-5.4) M/uL Hgb 7.0 L (12.0-16.0) g/dL Hct 20.1 L* (37-47) % MCV 88.2 (80-100) fL MCH 30.7 (25-34) pg MCHC 34.8 (32-36) g/dL RDW Std Deviation 41.8 (36.4-46.3) fL RDW Coeff of Josias 13.0 (11.5-14.5) % Plt Count 100 L (130-400) K/uL MPV 10.7 H (7.4-10.4) fL Immature Gran % (Auto) 0.2 % Neut % (Auto) 62.6 % Lymph % (Auto) 29.7 % [place] % (Auto) 7.1 % Eos % (Auto) 0.2 % Baso % (Auto) 0.2 % Reticulocyte % (Auto) (0.5-2.0) % Neut # (Auto) 2.72 (1.4-6.5) K/uL Lymph # (Auto) 1.29 (1.2-3.4) K/uL [place] # (Auto) 0.31 (0.11-0.59) K/uL Eos # (Auto) 0.01 (0-0.5) K/uL Baso # (Auto) 0.01 (0-0.2) K/uL Reticulocyte # (0.02-0.10) 10^6/uL Immature Gran # (Auto) 0.01 (0.00-0.02) K/uL RBC Morphology Unremarkable Lactate Dehydrogenase (86-244) U/L Blood Type Blood Type Recheck B Negative Antibody Screen Crossmatch Diagnostic Findings ABDOMEN AND PELVIS CT WITH IV CONTRAST CT DOSE: 353.52 mGy.cm HISTORY: Generalized abdominal pain. r/o bleed abdomen s/p lap appy TECHNIQUE: Multiaxial CT images of the abdomen and pelvis were performed following the use of intravenous contrast. A dose lowering technique was utilized adhering to the principles of ALARA. COMPARISON STUDY: Abdomen and pelvis CT 06/10/2021. FINDINGS: There are trace bilateral pleural effusions. Trace pneumoperitoneum. This is likely due to the patient's postoperative state. No fractures within the visualized osseous structures. Multiple small hepatic and renal cysts again noted. Stable 8 mm hypodense lesion within the interpolar region of the left kidney on image 172. This is incompletely characterized but may represent a hyperdense cyst. No hydronephrosis. The adrenal glands and pancreas unremarkable. Abdominal aorta is normal in caliber. The main portal vein is patent. Normal gallbladder. Periumbilical subcutaneous edema/hemorrhage with a small focus of gas. This likely represents expected postoperative changes status post laparoscopic appendectomy. There is also mild edema within the left lower quadrant abdominal musculature. The bladder is unremarkable. The uterus is within normal limits. There is a moderate amount of hemoperitoneum most pronounced within the right lower quadrant at the appendectomy site. There appears to be sentinel clot at this location best seen on image 255 which measures 7 cm. Hemoperitoneum seen within the deep pelvis as well as the perisplenic locations. No definite active arterial extravasation identified at this time. No bowel wall thickening or obstruction. There is mass effect the sigmoid colon from the hemoperitoneum. Small cleft along the inferior aspect of the spleen best seen on image 151. This is likely present on the prior study. A small splenic laceration is considered less likely. IMPRESSION: 1. Moderate amount of hemoperitoneum with a 7 cm sentinel clot located within the right lower quadrant near the appendectomy site. Therefore, this favors the origin of bleeding. No active arterial extravasation identified this time. 2. A small cleft within the inferior aspect of the spleen which was likely present on the prior study. There is a small amount of hemoperitoneum surrounding the spleen. A splenic laceration is considered less likely but not entirely excluded. 3. Trace bilateral pleural effusions. 4. Additional findings as described above. (1) Acute appendicitis Acute appendicitis type: with localized peritonitis Appendicitis abscess presence: without abscess Appendicitis gangrene presence: without gangrene Appendicitis perforation presence: without perforation Qualified Code(s): K35.30 - Acute appendicitis with localized peritonitis, without perforation or gangrene
[2021-06-12] MEDS: ACETAMINOPHEN 325 MG TAB PO PRN ×2 (11:10→21:46)
[2021-06-12] MEDS: SIMETHICONE 80 MG CHEW PO PRN ×2 (15:51→22:17)
[2021-06-12] MEDS ORDERED: traMADol HCL 50 MG TABLET PO PRN (16:17)
--- NOTE | 2021-06-12 16:51 | Consultation Report ---
DATE OF SERVICE: 06/12/2021. REASON FOR CONSULTATION: Severe anemia and thrombocytopenia. 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 The patient olivera d contracted mononucleosis about 7 weeks prior to admission, was followed by the physicians on campus for neutropenia and thrombocytopenia. She had presented to [facility] on Saturday night with pain in her abdomen. It began in the epigastrium and then migrated towards the right low er quadrant. Pain was exacerbated with physical activity. She denies fevers or chills. There is no nausea or vomiting, diarrhea or constipation associated with her presentation. She was subsequently diagnosed with acute appendicitis and emergently taken to the operating room on Saturday undergoing successful laparoscopic appendectomy. She dropped her hemoglobin on 2 consecutive postoperative days . Today, her hemoglobin was in the 7 g/dL range. She is being actively transfused. Her platelet co unt on presentation was 116,000. The patient states that her platelet count was 130,000 when she was diagnosed with mono 7 weeks prior. Her white count has also dropped persistently. Careful examinat ion, white cell differential clearly shows normal proportion of neutrophils to lymphocytes with no ev idence of immaturity. Reticulocyte count is actually inappropriately normal based on her blood loss. Hemoglobin on presentation was 14.5, now measures 7. CT scan of the abdomen and pelvis revealed he moperitoneum with a 7 cm sentinel clot located in the right lower quadrant near the appendectomy site favoring the origin of bleeding. There was no active arterial extravasation identified at that time . Small cleft within the inferior aspect of the spleen, which was likely present on prior study, a s mall amount of hemoperitoneum surrounding the spleen is noted as well. Actual splenic measurement wa s not carried out. At bedside, she is complaining of some left upper quadrant tenderness. She is rec eiving 2 units packed RBCs. PAST MEDICAL HISTORY: Significant for anxiety and mononucleosis. PAST SURGICAL HISTORY: Status post appendectomy. MEDICATIONS: control and sertraline 75 mg p.o. daily. ALLERGIES: No known drug allergies. FAMILY HISTORY: Noncontributory. SOCIAL HISTORY: The patient is a college student, nonsmoker and nondrinker. REVIEW OF SYSTEMS: As per HPI. PHYSICAL EXAMINATION: GENERAL: A very pleasant 20-year-old female, awake, alert and appropriate, in no acute distress. VITAL SIGNS: Temperature 37, pulse 97, respiratory rate 14, blood pressure 102/58. SKIN: Without rash or lesion. No petechiae or ecchymosis noted. HEENT: Atraumatic, normocephalic. Eyes: PERRLA. EOMI. Sclerae are nonicteric. No conjunctival in jection. Nares patent without rhinorrhea or discharge. Throat clear. Tongue midline. Mucous membr anes are moist. NECK: Supple without JVD or thyromegaly. LYMPH: No cervical, supraclavicular palpable nodes. HEART: Regular rate and rhythm. Borderline tachycardic. LUNGS: Clear to auscultation bilaterally. ABDOMEN: Again, point tenderness in the epigastrium and the left upper quadrant. Bowel sounds are h ypoactive. No rigidity or guarding. EXTREMITIES: No clubbing, cyanosis or edema. NEUROLOGIC: She is awake, alert and oriented x3. Grossly intact otherwise. LABORATORY DATA: WBC count 4350, hemoglobin 7, hematocrit 20.1%, platelet count 11,000. White cell differential within normal limits. LDH 96. Reticulocyte count 0.04. IMPRESSION: 1. Severe anemia postoperative bleeding. 2. Thrombocytopenia, etiology unclear. 3. Status post laparoscopic appendectomy postoperative day 2. PLAN: I was asked by the general surgery service to look in on the patient's blood counts. Clearly upon comparison, her WBCs were quite elevated indicating the acuteness of the appendix. Secondly, he r hemoglobin was in the 14 g/dL range and the patient herself reports her platelet count approximatel y 130,000, 8 weeks prior, when she had contracted mononucleosis. This would indicate that the patien t probably has a low normal platelet count as baseline and thus not terribly concerned. I do not bel ieve, the postoperative bleed had anything to do with her actual number, platelets of 100,[address] generally do not pose a risk for spontaneous bleeding assuming adequate platelet function. That said, clearly with the acute appendicitis and everything going on, I believe there is a degree of mye losuppression occurring as well as the obvious bleed seen radiographically. Thus, would not interven e at this time other than transfusional support and continue observing her counts on a daily basis. I will spot check her iron studies and B12 and replace as clinically indicated. I believe this young lady should follow up as an outpatient as well once she is completely medically stable to take a loo k at her counts in her normal state. We will also examine her peripheral smear. There was no eviden ce of hemolysis based on LDH and reticulocyte count taken earlier today. We will continue to follow the patient periodically during hospitalization. Thank you very much for allowing me to participate in her care. Job ID: [id number]
[2021-06-12] MEDS: oxyCODONE/ACETAMINOPHEN 5mg/325mg TAB PO PRN (17:13)
[2021-06-12] MEDS: MELATONIN 3 MG TAB PO PRN (21:40)
[2021-06-13] MEDS: AMPICILLIN/SULBACTAM SOD 1,500 MG in 0.9 % SODIUM CHLORIDE 100 ML IV SCH (04:34)
[2021-06-13 07:55] LABS: Hematocrit (blood only) 26.5 % (37-47); Mean Corpuscular Hemoglobin 29.8 pg (25-34); Mean Corpuscular Volume 87.7 fL (80-100); RDW Coefficient of Variation 13.7 % (11.5-14.5); RDW Standard Deviation 44.4 fL (36.4-46.3); Red Blood Count 3.02 M/uL (4.2-5.4); White Blood Count 3.15 K/uL (4.8-10.8)
[2021-06-13 08:14] LABS: Basophils # (auto) 0.01 K/uL (0-0.2); Basophils % (auto) 0.3 %; Eosinophils # (auto) 0.04 K/uL (0-0.5); Eosinophils % (auto) 1.3 %; Lymphocytes # (auto) 1.56 K/uL (1.2-3.4); Lymphocytes % (auto) 49.5 %; Mean Platelet Volume 11.2 fL (7.4-10.4); Monocytes # (auto) 0.35 K/uL (0.11-0.59); Monocytes % (auto) 11.1 %; Neutrophils # (auto) 1.19 K/uL (1.4-6.5); Neutrophils % (auto) 37.8 %; Platelet Count 99 K/uL (130-400); Platelet Estimate Decreased (Normal)
[2021-06-13 08:26] LABS: Ferritin 35.5 ng/ml (8-388)
[2021-06-13 08:31] LABS: Folate (Folic Acid) 16.23 ng/ml (>5.38)
[2021-06-13] MEDS: LACTATED RINGER'S 1,000 ML IV SCH ×2 (08:35→09:17)
[2021-06-13] MEDS: SERTRALINE HCL 50 MG TABLET PO SCH (08:37)
[2021-06-13] MEDS ORDERED: [UNRECOGNIZED DRUG - OTHER] PO SCH (09:00)
[2021-06-13] MEDS ORDERED: DOCUSATE SODIUM 100 MG CAP PO ONE (09:17)
[2021-06-13] MEDS: oxyCODONE/ACETAMINOPHEN 5mg/325mg TAB PO PRN (14:26)
--- NOTE | 2021-06-13 15:23 | Discharge Summary ---
Date of Service June 13, 2021 Admission HPI Per Admitting Provider 20-year-old who presents to the emergency room complaining of abdominal pain. She developed mononucleosis about 7 weeks ago and has been followed by [facility] for neutropenia and thrombocytopenia. She developed more acute abdominal pain over the course of the last day. This started in the upper abdomen and then localized in the right lower quadrant. It was worse with activity. Very intense/ severe. No radiation. No fevers. There was no nausea or vomiting. She has never had any similar episodes. Principal Diagnosis Acute appendicitis Discharge Exam Constitutional WD/WN, vitals as above no acute distress and not ill appearing Neck normal visual inspection and trachea midline Respiratory normal respiratory effort; no respiratory distress, no labored breathing and no retractions Gastrointestinal (Abdomen) Inspection/Auscultation: abdomen normal to inspection and + abdominal surgical incision (clean,dry,intact with steri strips present); abdomen not distended Percussion/Palpation: + abdomen tender (periumbilical and upper abdomen) and abdomen soft; no guarding, abdomen not rigid and abdomen not firm ecchymosis surrounding umbilical incision Skin no rashes, warm and dry Psychiatric A+Ox3, euthymic affect Discharge Data Allergies Allergy/AdvReac Type Severity Reaction Status Date / Time No Known Allergies Allergy Unverified 06/10/21 14:11 Consultations 06/10/21 17:05 ED Decision to Admit Stat 06/12/21 09:01 Consult Hematology Routine Procedures Performed Operation Date: 06/10/21 19:00 Actual Procedures p Laparoscopic Appendectomy - Fatimah Nava MD Ordered Studies 06/10/21 13:43 US pelvic complete Stat 06/10/21 13:45 US transvaginal Stat 06/10/21 13:57 US appendix Stat 06/10/21 13:59 CT abd pelvis oral and IV con Stat 06/12/21 08:35 CT abd pelvis IV con only Stat Hospital Course (1) Acute appendicitis: Patient was taken to operating room for laparoscopic appendectomy by Dr. Fatimah Nava. Patient was found to have acute appendicitis without perforation or abscess. Patient tolerated procedure well and was transferred to recovery and then to medical/surgical floor for postoperative care. Postop day #1 patient was having significant amount of neck and back pain as well as abdominal bloating. Her vital signs were stable she was not tachycardic or hypotension. Her hemoglobin did decrease to 8.5 which was 13 preoperatively. Added Colace and encouraged to ambulate once pain is better controlled to help increase GI motility and pass more gas. In the evening of postop day #1 patient began to be tachycardic and was given an IV fluid bolus. Postop day #2 she was still tachycardic with pulse in the 110s. BP 105/60. Her hemoglobin dropped lower to 7.0. A CT scan of the abdomen and pelvis with IV contrast showed moderate amount of hemoperitoneum with a 7 cm sentinel clot located within the right lower quadrant near the appendectomy site therefore this favors the origin of bl eeding however there was no active arterial extravasation identified at the time of study. She also had small amount of hemoperitoneum surrounding the spleen. She was consented for 2 units of packed red blood cells by Dr. Fatimah Nava. In the afternoon of postop day #2 patient was feeling much better after receiving the 2 units of blood. Her abdominal pain continue to improve throughout the day . She was passing gas. Tolerating little bit of regular diet. Urinating without difficulty. On postop day #3 afebrile, vital signs stable still tachycardic however hemoglobin responded to the 2 units of blood at 9.0. Abdomen was soft, nondistended, tender at the incision sites. She was ambulating, urinating well, tolerating diet, no nausea, no vomiting pain better controlled in the gas pain was continued to improve. Patient was discharged home in the afternoon on postop day #3 in stable condition. Discharge instructions were provided to the patient. She will follow up in the surgery o ffice in 2 weeks when she returns back to the area from [place] and she will also follow-up with Dr. Flor and 2 weeks. (2) Acute blood loss anemia: See plan as above (3) Thrombocytopenia: Thrombocytopenia was likely secondary to her recent mononucleosis infection in March. Dr. Flor was consulted and did not believe her bleeding was secondary to thrombocytopenia. She will follow up with Dr. Flor in 2 weeks after discharge for close follow-up and possible repeat labs. Total Time Total Time Spent Total Time Spent (In Minutes): 1 hour Total Time Includes: Examination of the Patient, Discharge Planning and Medication Reconciliation Discharge Plan Discharge Items Patient Disposition: Home - Self-Care Reason For Visit: ACUTE APPENDICITIS Discharge Diagnosis: s/p laparoscopic appendectomy Postoperative bleed with intra-abdominal hematoma Thrombocytopenia (low platelets) Condition on Discharge: Good Activity: Per Instructions section Sexual Activity: After two weeks Exercise/Sports: Wait until after follow-up appointment Exercise Comment: 4 weeks Non-emergency contact: [facility] Servicer and Surgeon Call non-emergency contact if: you have any medication questions, your pain is not controlled, your pain is worsening, you have a fever, your temperature is above 101.5, your wound has increased redness, your wound has increased drainage and your wound pain has increased Follow-up/Referrals: Gautam Flor DO [Physician] - (Follow 2 weeks) Fatimah Nava MD [Physician] - (Follow up in 2 weeks) PCP,NO [Physician] - Diet: Regular Addtl Attending Provider Instructions: Post-Surgical ~Discharge Instructions Activity Recommendations: - lifting limitation: (10 pounds for 4 weeks), - exercise/sex/sports limit: (nonstrenuous for 4 weeks), - driving or machine use limit: (none for 1 week or until pain free and no longer taking narcotic pain medication), - Shower/bathe limit: (may shower, no submerging incisions underwater for 2 weeks) Diet: - Resume previous diet SPECIAL CARE INSTRUCTIONS: - May shower. Let water run over area and pat dry. - Leave steri strips on for one week and then remove. They may fall off on their own that is okay. - Call the surgeon's office with any questions or concerns - - (ex. temperature higher than 101 degrees F, excessive bleeding or pain). MEDICATIONS: - Resume previous medications unless instructed otherwise by your surgeon. - Extra strength Tylenol as needed for mild to moderate pain - 650 mg Tylenol every 6 hours as needed - Percocet 1 every 4 hours, as needed for severe pain - Recommend daily stool softener (Colace, over the counter) for at least 1 week. Stop taking if bowels are consistently loose or having diarrhea. - You may take Miralax as needed if you are still having difficulty with bowel movements while taking the stool softener. If you have not had a good bowel movement by Saturday06/14/21 take daily stool softener and daily Miralax until you have a bowel movement. FOLLOW UP VISIT: - If not already scheduled, please call the office to schedule a two week follow-up appointment. Office number Pending Studies at Discharge: Yes Studies:: pathology Stand-Alone Forms: [facility], Opioid Pain [facility], Work/School Release, Smoking Cessation Medications and DC Order Prescriptions: New oxycodone-acetaminophen [Percocet] 5-325 mg Tablet 1 tab PO Q4H PRN (Reason: pain) Qty: 10 RF: 0 Continued sertraline 25 mg tablet 25 mg PO QAM RF: 0 sertraline 50 mg tablet 50 mg PO QAM RF: 0 drospirenone-ethinyl estradiol [Vestura (28)] 3-0.02 mg tablet 3 tab PO QAM RF: 0 Discharge Orders: Discharge Order (Routine); Ordered 06/13/21 Ordered By: Johanne Escoto/Other Patient Handouts: Anemia, Appendectomy Admission Data Admit Date/Time: 06/12/21 10:55 Attending Provider: Fatimah Nava Admit Provider: Fatimah Nava Primary Care Provider: Rolando Jang Other Providers: Fatimah Nava ; Gautam Flor V. Other Interventions: Discharge Summary Assessment (RN) Last Done: 06/13/21 14:05
--- NOTE | 2021-06-16 13:36 | Coding Query ---
CODING QUERY To promote full compliance with coding requirements relating to patient care, provider participation is requested in all cases of certified professional coder uncertainty. Please assist us with the question(s) below: Coding Question(s): The Consultation on 06/[address] Flor documents, "CT scan of the abdomen and pelvis revealed hemoperitoneum with a 7 cm sentinel clot located in the right lower quadrant near the appendectomy site favoring the origin of bleeding. There was no active arterial extravasation identified at that time. Small cleft within the inferior aspect of the spleen, which was likely present on prior study, a small amount of hemoperitoneum surrounding the spleen is noted as well. Actual splenic measurement was not carried out. At bedside, she is complaining of some left upper quadrant tenderness. She is receiving 2 units packed RBCs", and , "Severe anemia postoperative bleeding", and the Discharge Summary documents, "A CT scan of the abdomen and pelvis with IV contrast showed moderate amount of hemoperitoneum with a 7 cm sentinel clot located within the right lower quadrant near the appendectomy site therefore this favors the origin of bleeding however there was no active arterial extravasation identified at the time of study. She also had small amount of hemoperitoneum surrounding the spleen. She was consented for 2 units of packed red blood cells by Dr. Fatimah Nava. In the afternoon of postop day #2 patient was feeling much better after receiving the 2 units of blood. Her abdominal pain continue to improve throughout the day", and, "Postoperative bleed with intra-abdominal hematoma". Please specify below, in your clinical opinion, regarding hemoperitoneum and intra-abdominal hematoma. ( x) Hemoperitoneum and Postoperative bleed with Intra-abdominal Hematoma are likely postoperative complications ( ) Hemoperitoneum and Postoperative bleed with Intra-abdominal Hematoma are Not postoperative complications ( ) Other: Please Specify Physician's Response(s): Thank you Ade Morelos Principal Diagnosis: "that condition established after study, to be chiefly responsible for occasioning the admission of the patient to the hospital for care." Co-Existing Principal Diagnosis: "when two or more diagnoses equally meet the criteria for principal diagnosis as determined by the circumstances of admission, diagnostic work up, and/or therapy provided, and the Alphabetic Index, Tabular List, or another coding guideline does not provide sequencing direction, any one of the diagnoses may be sequenced first." "When the physician has documented what appears to be a current diagnosis in the body of the record, but has not included the diagnosis in the final diagnostic statement, the physician should be asked whether the diagnosis should be added." (Source Coding [facility] 2 QTR90. p3-4) KRISTIE
== END 2021-06-13 14:40 | disposition home or self-care (01) | DRG 341 ==
LOC: ED 12:57 → OR 19:14 → 3N 19:14